=== PATIENT | female | born 1985 | race Caucasian/White ===

== ENCOUNTER 2017-02-11 10:58 | Observation (INO) | payer OTHER ==
[~2017-02-11] VITALS: Ht 160 cm; Wt 61.7 kg
== END 2017-02-13 12:56 | disposition home or self-care (01) ==
LOC: ER 10:58 → ICU 13:00 → MED 13:00 → ICU 02-12 09:50 → MED 02-12 16:55
PROVIDERS: ADMIT Internal Medicine
DX: E10.65 Type 1 diabetes mellitus with hyperglycemia (principal); N39.0 Urinary tract infection, site not specified; K86.1 Other chronic pancreatitis; B96.20 Unspecified Escherichia coli [E. coli] as the cause of diseases classified elsewhere; G89.29 Other chronic pain; Z86.718 Personal history of other venous thrombosis and embolism; Z79.4 Long term (current) use of insulin; Z79.891 Long term (current) use of opiate analgesic; Z90.49 Acquired absence of other specified parts of digestive tract; Z80.0 Family history of malignant neoplasm of digestive organs; Z82.5 Family history of asthma and other chronic lower respiratory diseases; Z88.1 Allergy status to other antibiotic agents; Z88.0 Allergy status to penicillin
CPT/HCPCS: 36415; 96361; 96365; 96372; 96375; 96376; G0378; J0696; J1650

== ENCOUNTER 2017-02-11 11:24 | Emergency (ER) | payer OTHER | END 2017-02-11 12:59 | disposition critical access hospital (66) | LOC: ER 11:24 | DX: N39.0 Urinary tract infection, site not specified (principal); R31.29 Other microscopic hematuria; E10.10 Type 1 diabetes mellitus with ketoacidosis without coma; Z90.49 Acquired absence of other specified parts of digestive tract; Z88.0 Allergy status to penicillin; Z91.013 Allergy to seafood; Z88.1 Allergy status to other antibiotic agents; Z88.8 Allergy status to other drugs, medicaments and biological substances; Z79.899 Other long term (current) drug therapy | CPT/HCPCS: 36415; 96361; 96365; 96375; 96376; J0696 ==